=== PATIENT | male | born 1955 | race Caucasian/White ===

== ENCOUNTER 2019-09-28 02:15 | Emergency (ER) | payer OTHER ==
[2019-09-28 02:25] VITALS: TEMP 97.4; BMI 19.7
--- NOTE | 2019-09-28 02:33 | PDOC ---
History of Present Illness - General Chief Complaint: Alcohol intoxication Stated Complaint: INTOX Time Seen by Provider: 09/28/19 02:19 - History of Present Illness Initial Comments: 09/28/19 02:32 63 M with h/o NIDDM, HTN, HLD, Alcohol abuse, presenting to ED after being found intoxicated by PD. Pt states that he was drinking tonight when the police picked him up. He has no complaints. Denies falling or injuring himself. Past History - Medical History Allergies/Adverse Reactions: Allergies Allergy/AdvReac Type Severity Reaction Status Date / Time No Known Allergies Allergy Verified 06/29/19 06:19 Home Medications: Ambulatory Orders Unobtainable 06/29/19 COPD: No CHF: No Diabetes: Yes HTN: Yes Hypercholesterolemia: Yes Psychiatric Problems: Yes (depression and etoh abuse) - Psycho-Social/Smoking History Smoking History: Smoker current status UNK Have you smoked in the past 12 months: Yes Number of Cigarettes Smoked Daily: 10 Information on smoking cessation initiated: Yes Review of Systems - Review of Systems Comments:: 09/28/19 02:33 "GENERAL/CONSTITUTIONAL: No fever or chills. No weakness. HEAD, EYES, EARS, NOSE AND THROAT: No change in vision. No ear pain or discha rge. No sore throat. CARDIOVASCULAR: No chest pain, no shortness of breath, no loss of consciousness RESPIRATORY: No cough, wheezing, or hemoptysis. GASTROINTESTINAL: No nausea, vomiting, diarrhea or constipation. GENITOURINARY: No dysuria, frequency, or change in urination. MUSCULOSKELETAL: No joint or muscle swelling or pain. No neck or back pain. SKIN: No rash NEUROLOGIC: No vertigo, no change in strength/sensation. ENDOCRINE: No increased thirst. No abnormal weight change. HEMATOLOGIC/LYMPHATIC: No anemia, easy bleeding, or history of blood clots. ALLERGIC/IMMUNOLOGIC: No hives or skin allergy. *Physical Exam - Vital Signs Last Vital Signs Temp Pulse Resp BP Pulse Ox 97.4 F L 89 16 128/83 94 L 09/28/19 02:21 09/28/19 02:21 09/28/19 02:21 09/28/19 02:21 09/28/19 02:21 - Physical Exam 09/28/19 02:33 "GENERAL: Awake, alert, and fully oriented, in no acute distress. HEAD: No signs of trauma EYES: PERRLA, EOMI, sclera anicteric, conjunctiva clear ENT: Auricles normal inspection, hearing grossly normal, nares patent, oropharynx clear without exudates. Moist mucosa NECK: Nontender, no stepoffs, Normal ROM, supple, no lymphadenopathy, JVD, or masses LUNGS: Breath sounds equal, clear to auscultation bilaterally. No wheezes, and no crackles HEART: Regular rate and rhythm, normal S1 and S2, no murmurs, rubs or gallops ABDOMEN: Soft, nontender, normoactive bowel sounds. No guarding, no rebound. No masses EXTREMITIES: Normal range of motion, no edema. No clubbing or cyanosis. No cords, erythema, or tenderness NEUROLOGICAL: Cranial nerves II through XII intact. 5/5 strength and sensation in all extremities, Normal speech, normal gait, normal cerebellar function SKIN: Warm, Dry, normal turgor, no rashes or lesions noted. Medical Decision Making - Medical Decision Making 09/28/19 02:33 63 M found intoxicated by PD, now ambulatory in ED with steady gait but still mildly intoxicated. - Reassess when sober Pt signed out to Dr. Herrera at 7AM, pending re-evaluation. Discharge - Discharge Information Problems reviewed: Yes Clinical Impression/Diagnosis: Intoxication Condition: Improved Disposition: HOME - Follow up/Referral - Patient Discharge Instructions Patient Printed Discharge Instructions: DI for Alcohol Abuse Additional Instructions: Drink fluids Avoid alcohol If worsen return to ER - Post Discharge Activity
--- NOTE | 2019-09-28 07:30 | PDOC ---
*Physical Exam - Vital Signs Last Vital Signs Temp Pulse Resp BP Pulse Ox 97.4 F L 89 16 128/83 94 L 09/28/19 02:21 09/28/19 02:21 09/28/19 02:21 09/28/19 02:21 09/28/19 02:21 09/28/19 07:27 63 y/o male signed over to me by Dr. Rojas presents to ER intoxicated. Patient denies fall, trauma, headache, fever or chills. He was wandering streets and picked up by police. No complaints at this time. - Physical Exam General Appearance: Yes: Nourished, Appropriately Dressed. No: Apparent Distress HEENT: positive: EOMI, SELINA, Normal ENT Inspection, Normal Voice, Symmetrical, Pharynx Normal Neck: positive: Trachea midline, Supple. negative: Tender Respiratory/Chest: positive: Lungs Clear, Normal Breath Sounds. negative: Chest Tender, Respiratory Distress Cardiovascular: positive: Regular Rhythm, Regular Rate, S1, S2. negative: Edema, JVD, Murmur Vascular Pulses: Femoral (R): 4+, Femoral (L): 4+, Carotid (R): 4+, Carotid (L): 4+, Dorsalis-Pedis (R): 4+, Doralis-Pedis (L): 4+ Gastrointestinal/Abdominal: positive: Normal Bowel Sounds, Flat, Soft. negative: Tender, Organomegaly, Pulsatile Mass Lymphatic: negative: Adenopathy, Tenderness, Other Musculoskeletal: positive: Normal Inspection. negative: CVA Tenderness Extremity: positive: Normal Capillary Refill, Normal Inspection, Normal Range of Motion Integumentary: positive: Normal Color, Dry, Warm Neurologic: positive: furnace tender II-XII NML intact, Fully Oriented, Alert, Normal Mood/Affect, Normal Response, Motor Strength 5/5, Other (smell of alcohol noted) ED Progress Note - Progress Note Progress Note: 09/28/19 07:29 Patient has been sleeping it off States will take bus home Will discharge home when ready 09/28/19 07:57 Able to walk without difficulty Discharge - Discharge Information Problems reviewed: Yes Clinical Impression/Diagnosis: Intoxication Condition: Improved Disposition: HOME - Admission No - Follow up/Referral - Patient Discharge Instructions Patient Printed Discharge Instructions: DI for Alcohol Abuse Additional Instructions: Drink fluids Avoid alcohol If worsen return to ER - Post Discharge Activity
[2019-09-28 07:33] VITALS: BP 123/85; PULSE 96
== END 2019-09-28 08:01 | disposition home or self-care (01) ==
LOC: FER 02:15
DX: F10.920 Alcohol use, unspecified with intoxication, uncomplicated (principal)
CPT/HCPCS: 99283-25

== ENCOUNTER 2019-11-23 01:36 | Emergency (ER) | payer OTHER ==
[2019-11-23 02:02] VITALS: BP 139/82; PULSE 94; TEMP 98.6; BMI 22.8
--- NOTE | 2019-11-23 02:06 | PDOC ---
History of Present Illness - General Chief Complaint: Alcohol intoxication Stated Complaint: INTOX Time Seen by Provider: 11/23/19 02:04 History Source: Patient, EMS Exam Limitations: No Limitations - History of Present Illness Initial Comments: 63 y/o male BIBEMS for alcohol intoxication. Pt was found in the street by police, who in turn called for EMS. On arrival, the pt denies any complaints. Reports drinking several liters of whisky. Denies trauma. States he does not want to be seen, and that he is not sure why he was brought to the hospital. Reviewed previous encounters. H/o similar presentations. Past History - Medical History Allergies/Adverse Reactions: Allergies Allergy/AdvReac Type Severity Reaction Status Date / Time No Known Allergies Allergy Verified 06/29/19 06:19 Home Medications: Ambulatory Orders Unobtainable 06/29/19 COPD: No CHF: No Diabetes: Yes HTN: Yes Hypercholesterolemia: Yes Psychiatric Problems: Yes (depression and etoh abuse) - Psycho-Social/Smoking History Smoking History: Unknown if ever smoked Have you smoked in the past 12 months: Yes Number of Cigarettes Smoked Daily: 10 - Substance Abuse Hx (Audit-C & DAST Scrn) How often the patient has a drink containing alcohol: 2-4 times / month Score: In Men: 4 or > Positive; In Women: 3 or > Positive: 2 Screen Result (Pos requires Nsg. Audit-10AR): Negative In the last yr the pt used illegal drug/Rx for NonMed reason: No Score: Yes response is considered Positive: 0 Screen Result (Positive result requires Nsg. DAST-10): Negative Review of Systems - Review of Systems Able to Perform ROS?: Yes Comments:: 10 point review of systems completed. All systems negative except as noted above. *Physical Exam - Vital Signs Last Vital Signs Temp Pulse Resp BP Pulse Ox 98.6 F 94 H 20 139/82 95 11/23/19 01:59 11/23/19 01:59 11/23/19 01:59 11/23/19 01:59 11/23/19 01:59 - Physical Exam Vital signs and nursing notes reviewed. Constitutional- Nontoxic adult male in no acute distress or obvious discomfort. Mildly disheveled. Strong odor of alcohol about the person. Examined in semi- fowlers position on hospital hallway stretcher. Head- Normocephalic. No obvious external signs of trauma. No Baer's sign or periorbital bruising. Eyes- Pupils 4mm and PERRL. EOMI. Sclerae white. Conjunctiva moist and not injected. Ears- Hearing grossly intact. Nose- No nasal discharge. Neck- Supple, trachea is midline. No midline c-spine tenderness. Able to later ally rotate neck to R and L >45 degrees. Cardiovascular / Chest- Regular rate and regular rhythm. No murmur, rubs, clicks, or gallops. Peripheral pulses- radial pulses full. No anterior or posterior chest wall tenderness. Respiratory- Breathing unlabored. Speaking in multi-word responses without pausing. Equal chest rise and fall. Clear to auscultation bilaterally. No stridor, no wheezing, no rhonchi. Gastrointestinal- abdomen is soft, non-tender, non-distended. Pelvis stable and nontender with lateral compression. Neuro- Alert and oriented to person, place, and some events of the evening. Moving all four extremities spontaneously. No facial asymmetry. No nuchal rigidity. Skin- Warm, dry, and intact. No bruising, rashes, or other lesions. MSK- No midline or paraspinal thoracic or lumbosacral spinal tenderness. Psych- Affect- appropriate. Mood- normal. Speech was mildly slurred. Medical Decision Making - Medical Decision Making 63 y/o male presenting for self reported alcohol intoxication without any complaint. Afebrile. Vitals unremarkable for hypotension or tachycardia. Physical exam as described above. No obvious signs of trauma. POC glucose within normal limits. Pt observed walking through the department unassisted with a steady gait. Called the pts sister Basilia using the number documented by registration. Confirmed home address where both she and pt reside. Pt discharged to home via taxi. Case discussed with ED Attending Dr. Esqueda. Shawn Burleson M.D., PGY3 Emergency Medicine Residency Discharge - Discharge Information Problems reviewed: Yes Clinical Impression/Diagnosis: Intoxication Condition: Fair Disposition: HOME - Admission No - Follow up/Referral [facility]errals: [facility] [Provider Group] - Patient Discharge Instructions Patient Printed Discharge Instructions: DI for Alcohol Abuse Additional Instructions: Esta noche fuiste visto por intoxicacin por alcohol. Shell nivel de glucosa en ashlie era normal. No tiene signos de trauma. Solicit que le dieran el oscar. Yazmin de beber alcohol. Es peligroso para shell matt. He incluido lorelei referencia a nuestro programa de desintoxicacin de alcohol. Regrese al servicio de urgencias si tiene sntomas nuevos o que empeoran. You were seen tonight for alcohol intoxication. Your blood glucose level was normal. You do not have any signs of trauma. You requested to be discharged home. Stop drinking alcohol. It is hazardous to your health. I have included a referral to our alcohol detox program. Return to the ED for new or worsening symptoms. Print Language: MALTESE - Post Discharge Activity
--- NOTE | 2019-11-23 02:32 | PDOC ---
Attending Attestation - Resident Resident Name: Shawn Burleson - ED Attending Attestation I have performed the following: I have examined & evaluated the patient, The case was reviewed & discussed with the resident, I agree w/resident's findings & plan, Exceptions are as noted - HPI HPI: 11/23/19 02:28 63 yo M h/o etoh abuse p/w etoh intox. Denies all medical complaints or falls. As per EMS, bystander called EMS as patient as visibly intoxicated on the streets. No reports of falls. Patient reports he lives with family and can take a cab home. - Physicial Exam PE: 11/23/19 02:30 General: well appearing, NAD HEENT: NCAT, mmm Chest: CTAB, good air entry CVS: + s1 s2 Neuro: Ao3, speech fluent, face symmetric, no focal deficits, responds to questions appropriately, ambulatory with steady gait - Medical Decision Making 11/23/19 02:31 63 yo M here with etoh intox, no complaints and no evidence of traum aon exam, no indication for additional workup at this time, patient clinically sober. Plan: -d/c with return precautions, counseled on the dangers of excess etoh use, recommend PMD f/u as needed This clinical encounter is taking place during a federal and state health care emergency attributable to the novel Bernstein Virus pandemic. The Clinical Trial Associate of the Department of Health and Human Services has declared, pursuant to the Public Health Service Act 319F-3 (42 U.S.C. 247d-6d), that a covered persons activities related to medical countermeasures against COVID-19 will be immune from liability under Federal and State law. Discharge - Discharge Information Problems reviewed: Yes Clinical Impression/Diagnosis: Intoxication Condition: Fair Disposition: HOME - Follow up/Referral Referrals: [facility] [Provider Group] - Patient Discharge Instructions Patient Printed Discharge Instructions: DI for Alcohol Abuse Additional Instructions: Esta noche fuiste visto por intoxicacin por alcohol. Bustos nivel de glucosa en ashlie era normal. No tiene signos de trauma. Solicit que le dieran el oscar. Yazmin de beber alcohol. Es peligroso para bustos matt. He incluido lorelei referencia a nuestro programa de desintoxicacin de alcohol. Regrese al servicio de urgencias si tiene sntomas nuevos o que empeoran. You were seen tonight for alcohol intoxication. Your blood glucose level was normal. You do not have any signs of trauma. You requested to be discharged home. Stop drinking alcohol. It is hazardous to your health. I have included a referral to our alcohol detox program. Return to the ED for new or worsening symptoms. Print Language: FRENCH - Post Discharge Activity
== END 2019-11-23 02:46 | disposition home or self-care (01) ==
LOC: JER 01:36
DX: F10.229 Alcohol dependence with intoxication, unspecified (principal)
CPT/HCPCS: 82962; 99283-25

== ENCOUNTER 2019-12-21 01:54 | Emergency (ER) | payer OTHER ==
[2019-12-21 02:00] VITALS: TEMP 98; BMI 22.1
--- NOTE | 2019-12-21 02:01 | PDOC ---
History of Present Illness - General Chief Complaint: Alcohol intoxication Stated Complaint: INTOX Time Seen by Provider: 12/21/19 01:56 History Source: Patient, EMS Exam Limitations: Intoxication - History of Present Illness Initial Comments: 12/21/19 01:58 64 y/o male with PMH HTN, HLD, DM, alcohol abuse BIBEMS for alcohol intoxication. [facility], who in turn called for EMS. On arrival, the pt denies any complaints. He is currently intoxicated and there is limitations in providing HPI in setting of severe intox state. no reported trauma or falls. unable to quantify how much alcohol he drank Reviewed previous encounters. H/o similar presentations of ETOH intoxication 12/21/19 02:10 Past History - Medical History Allergies/Adverse Reactions: Allergies Allergy/AdvReac Type Severity Reaction Status Date / Time No Known Allergies Allergy Verified 06/29/19 06:19 Home Medications: Ambulatory Orders Unobtainable 06/29/19 COPD: No CHF: No Diabetes: Yes HTN: Yes Hypercholesterolemia: Yes Psychiatric Problems: Yes (depression and etoh abuse) - Psycho-Social/Smoking History Smoking History: Smoker current status UNK Have you smoked in the past 12 months: Yes Number of Cigarettes Smoked Daily: 10 Review of Systems - Review of Systems Able to Perform ROS?: No (intoxication) *Physical Exam - Physical Exam 12/21/19 01:59 Physical exam General: Intoxicated, slurring speech, somnolent. arousable when apoken to. disheveled elderly male HEENT: NCAT, PERRL, EOMI, clear conjunctiva, anicteric, clear oropharynx, no oral lesions.. Neck: neck supple, FROM Resp: CTAB, normal and even respirations, no respiratory distress CVS: RRR, no murmurs, 2+ peripheral pulses throughout, no peripheral edema Abdomen: soft, NTND, no rebound or guarding. Back: nontender, normal inspection and ROM MSK: no edema, CURIEL x4, ROM intact. No clubbing or cyanosis. normal bulk and tone. legs crossed Neuro: intoxicated, oriented to person and place now, slurred speech from intox state Psych: Calm and cooperative Skin: warm and well perfused, cap refill <2 sec, normal color, no rash or skin discoloration. 12/21/19 02:10 Medical Decision Making - Medical Decision Making 12/21/19 02:00 Vital Signs Temp Pulse Resp BP Pulse Ox 98 F 83 16 134/84 98 12/21/19 01:55 12/21/19 01:55 12/21/19 01:55 12/21/19 01:55 12/21/19 01:55 DDx. alcohol intoxication, alcohol withdrawal. drug intoxication Patient demonstrates clinical evidence for alcohol intoxication. The patient admits to intentional heavy drinking of alcohol and denies fall or injury. The patient also denies drug use. Some of the history and physical exam is limited due to the state of intoxication. All clothes were removed, all parts of the body were evaluated and there is no evidence of acute trauma. The plan is to observe patient in the ED until clinical sobriety is reached and reassess history and physical examination. pt monitored closely in the ED, pt seen and reassessed periodically. remained comfortable, no acute events, blood sugar normal, VS remain stable. S.o to Dr Mancera pending sobriety and reevaluation, as pt is still heavily intoxicated and sleeping. 12/21/19 02:11 12/21/19 06:54 Discharge - Discharge Information Problems reviewed: Yes Clinical Impression/Diagnosis: Alcohol intoxication Qualifiers: Complication of substance-induced condition: uncomplicated Qualified Code(s): F10.920 - Alcohol use, unspecified with intoxication, uncomplicated Condition: Stable - Admission No - Follow up/Referral - Patient Discharge Instructions Patient Printed Discharge Instructions: DI for Alcohol Use Disorder Additional Instructions: Alcohol Discharge: 1) Please do not drink alcohol or ingest any mind-altering substances and drive or make important decisions. Please cut down on your substance use/abuse. 2) You were given information about substance use/abuse. Please review this literature. 3) If you have any worsening of symptoms please return to the ED immediately. 4) Please follow-up with your primary care doctor in the next 5-7 days for evaluation of symptoms. Please stop drinking to excess. Return to ED for seizures, shaking, confusion, intractable vomiting, blood in vomit or any other concerning symptoms. Please do not drink and drive. Print Language: SWEDISH - Post Discharge Activity
[2019-12-21 07:16] VITALS: BP 127/79; PULSE 87
== END 2019-12-21 07:31 | disposition home or self-care (01) ==
LOC: FER 01:54
DX: F10.920 Alcohol use, unspecified with intoxication, uncomplicated (principal)
CPT/HCPCS: 82962; 99282-25

== ENCOUNTER 2020-08-15 00:38 | Emergency (ER) | payer OTHER ==
[2020-08-15 00:47] VITALS: BP 121/76; PULSE 102; TEMP 97.3; BMI 22.1
== END 2020-08-15 01:48 | disposition home or self-care (01) ==
LOC: FER 00:38
DX: F10.129 Alcohol abuse with intoxication, unspecified (principal)
CPT/HCPCS: 99281-25

== ENCOUNTER 2024-01-20 13:26 | Emergency (ER) | payer OTHER ==
[2024-01-20 14:09] VITALS: BP 108/67; PULSE 97; RESP 18; TEMP 98.3; BMI 14.8
[2024-01-20] MEDS ORDERED: VANCOMYCIN 1,000 MG in DEXTROSE 5%-WATER - 250 ML IVPB ONE (15:17)
[2024-01-20 15:22] LABS: HEMATOCRIT 31.3 % (35.4-49); HEMOGLOBIN 10.1 GM/dL (11.7-16.9); MCHC 32.2 g/dl (32.0-35.9); MEAN CELL VOLUME 102.5 fl (80-96); PLATELET COUNT 365 10^3/uL (134-434); RBC 3.05 M/mm3 (4.00-5.60); RDW 19.2 % (11.9-15.9); WHITE BLOOD COUNT 7.9 K/mm3 (4.0-10.0)
[2024-01-20 15:29] LABS: INR 1.31 (0.83-1.09)
[2024-01-20 15:32] LABS: ACTIVATED PTT 30.8 SECONDS (25.2-36.5)
[2024-01-20 15:39] LABS: POTASSIUM 5.1 mmol/L (3.5-5.1)
[2024-01-20 15:41] LABS: CALCIUM 9.2 mg/dL (8.5-10.1)
[2024-01-20 15:42] LABS: ALBUMIN 2.4 g/dl (3.4-5.0); BLOOD UREA NITROGEN 43.2 mg/dL (7-18); MAGNESIUM 2.1 mg/dL (1.8-2.4)
[2024-01-20 15:45] LABS: CREATININE 1.4 mg/dL (0.55-1.3)
[2024-01-20] MEDS ORDERED: VANCOMYCIN 1 GRAM (PRE-DOCKED) 1,000 MG/250 ML BAG IVPB ONE (15:46)
[2024-01-20] MEDS ORDERED: PIPERACILLIN/TAZOB 4.5 GM 4.5 GM/100 ML BAG IVPB ONE (15:46)
[2024-01-20 15:47] LABS: BILIRUBIN,TOTAL 0.7 mg/dL (0.2-1); TOT PROT 6.4 g/dl (6.4-8.2)
[2024-01-20 15:53] LABS: ANISOCYTOSIS 0; HELMET CELLS 0; HOWELL-JOLLY BODIES 0; MACROCYTOSIS 0; OVALOCYTE 0; ROULEAU 0; SICKELED CELLS 0; TARGET CELLS 0; TEAR DROP CELLS 0; TOXIC GRANULATION 0
[2024-01-20] MEDS: PIPERACILLIN/TAZOB 4.5 GM 4.5 GM in DEXTROSE 5%-WATER 100 ML IVPB ONE (16:05)
[2024-01-20] MEDS: LACTATED RINGERS SOLUTION 1000 ML INFUS.BAG IV ONE (16:12)
== END 2024-01-20 17:20 | disposition short-term general hospital (02) ==
LOC: JER 13:26
DX: R05.9 Cough, unspecified (principal); R62.7 Adult failure to thrive; R53.1 Weakness; J69.0 Pneumonitis due to inhalation of food and vomit; Z20.822 Contact with and (suspected) exposure to COVID-19
CPT/HCPCS: 0241U-QW; 36415; 71045-TC-FY; 80053; 83735; 84484; 85025; 85610; 85730; 86850; 86900; 86901; 87040; 93005; 93010; 99285-25